=== PATIENT | female | born 1990 | race Caucasian/White ===

== ENCOUNTER 2022-05-19 19:28 | Inpatient (IN) ==
--- NOTE | 2022-05-19 20:19 | Obstetrical Progress Note ---
Date of Service May 19, 2022 Assessment & Plan (1) Two vessel umbilical cord in oh , antepartum: (2) Gestational diabetes mellitus (GDM) affecting , antepartum: Plan 32 yo at 40 4/7 wga presents for chow bulb placement VSS Chow bulb - 35cc chow bulb placed after verbal informed consent obtained following review of risks and benefits, pt tolerated well. NST reactive prior, will monitor x 1hr and d/c as long as remains reactive. Labor and chow bulb precautions reviewed Admission and Anticipated Discharge Date Admission Date: May 19, 2022 Subjective 32 yo at 40 4/7 wga presents for chow bulb for planned IOL tomorrow. +FM; denies ctx, LOF, VB PNI: 2VC A1GDM Physical Exam Genitourinary: Manual OB Exam: + cervical dilation (1.5-2), + cervical effacement 50% and + station -2 OB Exam Monitor Tracing: + external FHT monitor used, + external uterine monitor used (irritability) and + category I (125-130/mod/+accel/-decel) Results & Data ([facility]) Vital Signs (Past 12 Hours) Vital Signs Temp Pulse Resp BP 05/19/22 19:30 20 05/19/22 20:01 76 124/77 05/19/22 19:33 98.4 F 90 20 143/79 H PG Care Time/CCT Total # of Minutes Spent Total Time Spent with Patient: Total time spent is greater than 50% in coordination of care (as documented) at patient's floor/unit and/or counseling patient: Coding Level of Care Code 72000 Office/Outpt Visit, Est Diagnoses Two vessel umbilical cord in oh , antepartum O09.899 Gestational diabetes mellitus (GDM) affecting , antepartum O24.419 CPT Codes Misx Procedure Codes - 70373 Placement of cervical dilator: 52600 Placement of cervical dilator ([id number]) Misx Procedure Codes - 47188 NST: 47921 NST ([id number]) GARAGE SUPERVISOR Miscellaneous Codes Misx Procedure Codes 71654 Placement of cervical dilator 43585 NST
== END 2022-05-19 21:30 | disposition home or self-care (01) | DRG 833 ==
LOC: 4S1 19:28

== ENCOUNTER 2022-05-20 07:42 | Inpatient (IN) ==
[2022-05-20] MEDS ORDERED: LIDOCAINE 1% LOCAL 20 ML VIAL INFIL PRN (08:08)
[2022-05-20] MEDS ORDERED: OXYTOCIN 30 UNITS/500 ML BAG IV PRN ×3 (08:08→21:29)
--- NOTE | 2022-05-20 08:37 | History & Physical Report ---
Date of Service May 20, 2022 Assessment & Plan (1) Encounter for induction of labor: Plan: Patient is a 32 yo at 40+5 WGA presenting to labor and delivery for induction. Blood type: A+, GBS neg, rubella immune Chow bulb in vagina on exam- removed Plan to start oxytocin and rupture membranes later if necessary Proceed with labor and vaginal delivery Admission and Anticipated Discharge Date Admission Date: May 20, 2022 History of Present Illness Primary Care Provider: Guru Lee MD Patient is a 32 yo female currently at 40+5WGA with an YAMILEX 05/15/2022 as determined by LMP who is here for induction. Her was complicated by GDM and a 2 vessel cord. Denies timeable contractions, still sporadic and mildly painful at this point; movement present; denies fluid loss; denies bloody show, "spotting" after chow bulb placement External FHT and external uterine monitors used; category I tracing; normal FHT variability Had regular appointments with OB. Labs: 10/10/2021 Blood type: A+ Antibody screen: neg Hgb: 11.4 (today) Hct: 33.3% (today) WBC: 9.48 (today) Plt: 224 (today) Rubella: immune VDRL/RPR: neg Gonorrhea: neg Chlamydia: neg HIV: neg HbSAg: neg GBS: neg Other screens: cff-DNA: low risk CF: neg SMA: neg Allergies Allergy/AdvReac Type Severity Reaction Status Date / Time No Known Allergies Allergy Verified 05/20/22 08:06 Home Medications Medication Instructions Recorded Confirmed Type prenat.vits,abby,tcq-ikrn-eodcg 1 tab PO DAILY 06/03/21 05/20/22 History acetone (urine) test (Ketone Urine #50 ea 03/13/22 05/19/22 Rx Test strips) blood sugar diagnostic (OneTouch #150 ea 03/13/22 05/19/22 Rx Verio test strips) blood-glucose meter (OneTouch #1 ea 03/13/22 05/19/22 Rx Verio Reflect Meter) lancets 33 gauge (OneTouch Delica #150 ea 03/13/22 05/19/22 Rx Lancets) famotidine 10 mg tablet (Pepcid AC) 10 mg PO DAILY 05/20/22 05/20/22 History Patient History Medical History (Updated 05/20/22 @ 08:37 by Harper Levin DO) Gestational diabetes mellitus Diet controlled Two vessel umbilical cord Echo- Normal Surgical History H/O removal of cyst scalp H/O wisdom tooth extraction Family History Grandmother (Maternal) Colorectal cancer Father Dyslipidemia Mother Parkinson disease Denies family history of Ovarian cancer Prostate cancer Breast cancer Social History (Updated 05/20/22 @ 08:06 by Bhavani De Dios, CHRIS) Smoking Status: Never smoker Hx Alcohol Use: No Hx Substance Use: No Preferred Language: 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 Denies SOB, difficulty breathing, chest pain, palpitations, and chest pressure. Denies breast pain. Denies dysuria. Denies headache or changes in vision. Physical Exam Physical Exam: General: Alert and oriented. No acute distress CV: Regular rate and rhythm. No murmurs. Respiratory: CTA bilaterally. No rhonchi, wheezes, or crackles. No increased work of breathing. Abdomen: Gravid; Soft, nontender upon palpation Pelvic: Dilated 3 cm; Effacement 70%; Station -[address] Pichardo Lower extremities: Mild, nonpitting, bilateral LE edema. No deep calf pain. Yadi's negative bilaterally. Genitourinary: OB Exam Abdomen: + vertex, + estimated weight (7-8 lbs) and + irregular contractions Manual OB Exam: + cervical dilation 3 cm, + cervical effacement 70% and + station -2 OB Exam Monitor Tracing: + external FHT monitor used, + external uterine monitor used, + category I and + normal FHT variability Results & Data ([facility]) Vital Signs (Past 12 Hours) Vital Signs Pulse BP 05/20/22 07:56 102 H 135/89 Supervising Physician Co-Signing Physician Notes Resident Physician Supervision Note: I interviewed and examined the patient. Discussed with Dr. Levin and agree with findings and plan as documented in the note. Any exceptions or clarifications are listed here: [None] Documented By: Swati Babcock MD, FACOG Resident Activity Tracking Resident Involvement: Resident Care Provided Care Provided: OB Delivery
[2022-05-20 08:40] LABS: Hematocrit (blood only) 33.3 % (34.1-44.9); Hemoglobin 11.4 g/dl (12.0-16.0); Mean Corpuscular Hemoglobin 31.5 pg (25.0-34.0); Mean Corpuscular Hgb Conc 34.2 g/dL (32.0-36.0); Mean Platelet Volume 10.7 fL (9.4-12.3); Platelet Count 224 K/uL (130-400); RDW Coefficient of Variation 12.7 % (11.5-14.5); RDW Standard Deviation 42.4 fL (36.4-46.3); Red Blood Count 3.62 M/uL (3.93-5.22); White Blood Count 9.48 K/ul (4.8-10.8)
[2022-05-20] MEDS: LACTATED RINGER'S 1,000 ML IV PRN ×3 (09:21→16:29)
[2022-05-20] MEDS ORDERED: ePHEDrine sulfate 50 MG/ML AMP ONE (15:39)
[2022-05-20] MEDS ORDERED: fentaNYL citrate 100 MCG/2 ML VIAL ONE (15:40)
[2022-05-20] MEDS ORDERED: BUPIVACAINE 0.25% 30 ML VIAL ONE (15:40)
[2022-05-20] MEDS ORDERED: SODIUM CHLORIDE 0.9% INJ 10 ML VIAL ONE (15:40)
[2022-05-20] MEDS ORDERED: LIDOCAINE 2%/EPINEPHRINE 1:200,000 20 ML SDV ONE (15:40)
[2022-05-20] MEDS ORDERED: fentaNYL 2MCG/ML ROPIVACAINE 1.25MG/ML 100 ML BAG EPI ONE (15:40)
[2022-05-20] MEDS ORDERED: NALOXONE HCL 1 MG in SODIUM CHLORIDE 0.9% 1000ML 1,000 ML IV PRN (15:58)
[2022-05-20] MEDS ORDERED: fentaNYL 2MCG/ML ROPIVACAINE 1.25MG/ML 100 ML BAG EPI PRN (15:58)
[2022-05-20] MEDS ORDERED: ePHEDrine sulfate 50 MG/ML AMP IV PRN (15:58)
[2022-05-20] MEDS ORDERED: NALBUPHINE HCL INJ 10 MG/ML AMP IV PRN (15:58)
[2022-05-20] MEDS ORDERED: diphenhydrAMINE 50 MG/ML VIAL IV PRN (15:58)
[2022-05-20] MEDS ORDERED: NALOXONE HCL 0.4 MG/1 ML VIAL/CARP IV PRN (15:58)
--- NOTE | 2022-05-20 16:00 | Anesthesiology Consultation ---
Date of Service May 20, 2022 Assessment & Plan (1) Encounter for pre-operative examination: Chart Review Chart Review: Patient NOT seen in Pre Admission Testing and Acceptable Risk for Labor Epidural Consults Requested none History Height/Weight Height: 5 ft 2 in Weight: 92.986 kg Allergies Allergy/AdvReac Type Severity Reaction Status Date / Time No Known Allergies Allergy Verified 05/20/22 08:06 Medications Home Medications Medication Instructions Recorded Confirmed Last Taken prenat.vits,abby,jzv-uolh-buksf 1 tab PO DAILY 06/03/21 05/20/22 05/19/22 08:00 acetone (urine) test (Ketone Urine #50 ea 03/13/22 05/19/22 Unknown Test strips) blood sugar diagnostic (OneTouch #150 ea 03/13/22 05/19/22 Unknown Verio test strips) blood-glucose meter (OneTouch #1 ea 03/13/22 05/19/22 Unknown Verio Reflect Meter) lancets 33 gauge (OneTouch Delica #150 ea 03/13/22 05/19/22 Unknown Lancets) famotidine 10 mg tablet (Pepcid AC) 10 mg PO DAILY 05/20/22 05/20/22 05/19/22 08:00 Active Medications Generic Name Dose Route Start Last Admin Trade Name Freq PRN Reason Stop Dose Admin Oxytocin 30 units in 500 mls @ 15 mls/hr 05/20/22 08:08 05/20/22 14:45 Pitocin IV 05/22/22 08:07 0.9 units/hr .Q24H PRN 15 mls/hr Labor Induction/Augmentation Titration Protocol 0.9 UNITS/HR Lactated Ringer's 1,000 mls @ 125 mls/hr 05/20/22 08:08 05/20/22 15:31 Lr IV 05/22/22 08:07 999 mls/hr .Q8H PRN Administration L&D Protocol Protocol Past Medical History Medical History Gestational diabetes mellitus Diet controlled Two vessel umbilical cord Echo- Normal Exercise / Class Metabolic Activity II 4-5 Yardwork/Stairs/Walk up hill Past Family History Family History Grandmother (Maternal) Colorectal cancer Father Dyslipidemia Mother Parkinson disease Denies family history of Ovarian cancer Prostate cancer Breast cancer Past Surgical History Surgical History H/O removal of cyst scalp H/O wisdom tooth extraction Past Anesthesia History No Hx of Anesthesia Complications and No Family Hx of Anesthesia Complications History of PONV No Hx of PONV and No Hx of Motion Sickness Social History Smoking Status: Never smoker Hx Alcohol Use: No Hx Substance Use: No substance use type: does not use Physical Exam Vital Signs Last Vital Signs Temp 37.0 C 05/20/22 14:53 Pulse 69 05/20/22 16:16 Resp 20 05/20/22 14:53 BP 175/99 H 05/20/22 15:24 Pulse Ox 100 05/20/22 16:16 Testing Laboratory Results 05/20/22 08:18 Blood Type A Positive 05/20/22 08:18 Antibody Screen NEGATIVE 05/20/22 08:18 05/20/22 08:57 POC Glucose 122 H
[2022-05-20] MEDS ORDERED: ACETAMINOPHEN 325 MG TAB PO PRN (21:29)
[2022-05-20] MEDS ORDERED: bisacodyL 10 MG SUPP PR PRN (21:29)
[2022-05-20] MEDS ORDERED: BENZOCAINE 20% AER SPR 82.5 GM CAN EXT PRN (21:29)
[2022-05-20] MEDS ORDERED: DIPHTHERIA/TETANUS/PERTUSSIS 0.5 ML SYR/VIAL IM ONE (21:29)
[2022-05-20] MEDS ORDERED: HYDROCORTISONE ACETATE 25 MG SUPP PR PRN (21:29)
[2022-05-20] MEDS ORDERED: oxyCODONE/ACETAMINOPHEN 5mg/325mg TAB PO PRN (21:29)
--- NOTE | 2022-05-20 21:33 | Delivery Summary ---
Vaginal Delivery Summary Date of Service May 20, 2022 Vaginal Delivery Summary and 2nd Degree LAC Patient is a 32-year-old 1 para 0 female EDC of 05/15/2022 presents for induction of labor because of postterm . A cervical balloon was successfully placed the night prior to induction. Pitocin augmentation of her contractions was begun and she requested epidural analgesia after her membranes were ruptured for clear fluid. She progressed to full dilation and pushed effectively over intact perineum for delivery of a viable female . After the head was delivered the rest of the delivered easily and was placed on mother's abdomen for further attention and drying. After 1 minute, the cord was clamped and cut. The infant was vigorous after stimulation. After cord blood was obtained the placenta was expressed intact with a three-vessel cord. Prenatally it was noted to be a two-vessel cord but on inspection, there was actually 2 vessels with 1 being very small. bleeding was controlled with dilute Pitocin and fundal massage. A second-degree perineal laceration was repaired with 3-0 chromic in the usual fashion. Estimated blood loss was 200 cc. Mother and were doing well in the immediate period. [facility] [place] Vaginal Delivery Charge Delivery Type Details: and 2nd Degree LAC
--- NOTE | 2022-05-20 21:53 | Anesthesia Procedure Note ---
Date of Service May 20, 2022 Anesthesia Post Epidural Note Vital Signs Vital Signs: Temp Pulse Resp BP Pulse Ox 37.8 C H 96 H 20 122/62 97 05/20/22 20:50 05/20/22 21:37 05/20/22 20:30 05/20/22 21:37 05/20/22 21:21 Pain Intensity Bilateral Abdomen: Pain Intensity: 4 Notes Mental Status: alert / awake / arousable and participated in evaluation Patient Amnestic to Procedure: No Nausea / Vomiting: adequately controlled Pain: adequately controlled Airway Patency, RR, SpO2: stable & adequate BP & HR: stable & adequate Hydration State: stable & adequate Neuraxial Anesthesia: was administered and sensory block is resolving Anesthetic Complications: no major complications apparent and Pt Satisfied with anesthetic care Epidural: Removed without complications and With tip intact
[2022-05-21] MEDS: IBUPROFEN 600 MG TAB PO PRN ×5 (04:23→21:52)
[2022-05-21 06:30] LABS: Hematocrit (blood only) 29.8 % (34.1-44.9); Hemoglobin 10.4 g/dl (12.0-16.0); Mean Corpuscular Hemoglobin 31.9 pg (25.0-34.0); Mean Corpuscular Hgb Conc 34.9 g/dL (32.0-36.0); Mean Corpuscular Volume 91.4 fL (80.0-100.0); Mean Platelet Volume 10.7 fL (9.4-12.3); Platelet Count 183 K/uL (130-400); RDW Coefficient of Variation 12.5 % (11.5-14.5); RDW Standard Deviation 41.8 fL (36.4-46.3); Red Blood Count 3.26 M/uL (3.93-5.22); White Blood Count 12.14 K/ul (4.8-10.8)
--- NOTE | 2022-05-21 06:34 | Obstetrical Progress Note ---
Date of Service <Harper CarrolljacquelineandreaDO - Last Filed: 05/21/22 07:00> May 21, 2022 Assessment & Plan <Harper Levin - Last Filed: 05/21/22 07:00> (1) care following vaginal delivery: Patient is PPD 1 s/p and doing well. - Eating well, voiding well, ambulating well - Vitals reviewed and within normal limits - Pain well controlled with analgesics - OOB, ambulation, diet progression as tolerated - Blood type: A+, GBS neg, rubella immune - Plan to discharge tomorrow - After discharge, 6 week follow up with Dr. Pichardo <Swati Babcock MD, FACOG - Last Filed: 05/21/22 07:29> (1) care following vaginal delivery: Subjective <Harper CarrolljacquelineandreaDO - Last Filed: 05/21/22 07:00> Patient is a 32 yo female who is now PPD #1 following spontaneous vaginal delivery at 40+5 weeks. Reports feeling well this morning. She endorses abdominal cramping and 1/10 pain well managed on analgesics. Voiding without i ssue. Tolerating regular meals overnight and able to ambulate some. She has not passed gas and no bowel movements. Persistent lochia with some improvement this morning. Currently breast feeding. Review of Systems Denies fever, chills, sweats. Denies SOB, difficulty breathing, chest pain, palpitations, and chest pressure. Denies breast pain. Denies dysuria. Denies headache or changes in vision. Physical Exam <Harper CarrollDO latrice - Last Filed: 05/21/22 07:00> General: Alert and oriented. No acute distress. CV: Regular rate and rhythm. No murmurs. Respiratory: CTA bilaterally. No rhonchi, wheezes, or crackles. No increased work of breathing. Abdomen: Positive bowel sounds. Soft, nontender, non distended. Uterus: Fundus firm and palpable 3 cm below the umbilicus. Lower extremities: Mild, nonpitting, bilateral LE edema. No deep calf pain. Yadi's negative bilaterally. Results & Data ([facility]) <Harper DelgadoCharo Levin DO - Last Filed: 05/21/22 07:00> Vital Signs (Past 12 Hours) Vital Signs Temp Pulse Pulse Resp BP BP Pulse Ox 05/21/22 05:00 36.7 C 77 16 130/84 97 05/21/22 00:30 37.1 C 89 18 131/81 96 05/20/22 21:38 99 H 18 120/58 L 05/20/22 22:08 102 H 20 05/20/22 21:53 102 H 20 132/68 05/20/22 21:23 99 H 20 120/58 L 05/20/22 23:52 85 123/63 05/20/22 23:37 89 122/62 05/20/22 23:22 93 H 124/70 05/20/22 23:08 95 H 126/76 05/20/22 22:52 91 H 124/65 05/20/22 22:37 93 H 118/59 L 05/20/22 22:22 102 H 132/68 05/20/22 22:08 99 H 120/58 L 05/20/22 21:52 101 H 131/66 05/20/22 21:37 96 H 122/62 05/20/22 21:23 95 H 126/61 05/20/22 21:21 95 H 97 05/20/22 21:16 94 H 97 05/20/22 21:11 93 H 96 05/20/22 21:07 93 H 91 05/20/22 21:06 97 H 98 05/20/22 21:00 113 H 90 05/20/22 21:01 110 H 99 05/20/22 20:50 37.8 C H 05/20/22 20:56 103 H 98 05/20/22 20:54 100 H 119/66 05/20/22 20:51 91 H 99 05/20/22 20:46 96 H 99 05/20/22 20:41 83 98 05/20/22 20:30 20 05/20/22 20:30 20 05/20/22 20:39 93 H 133/74 05/20/22 20:36 101 H 98 05/20/22 20:31 95 H 99 05/20/22 20:26 100 H 100 05/20/22 20:24 95 H 128/70 05/20/22 20:21 102 H 100 05/20/22 20:16 85 99 05/20/22 20:11 79 99 05/20/22 20:08 82 125/74 05/20/22 20:06 81 99 05/20/22 20:01 79 99 05/20/22 20:00 20 05/20/22 20:00 20 05/20/22 19:55 79 98 05/20/22 19:54 85 126/75 05/20/22 19:51 77 99 05/20/22 19:04 20 05/20/22 19:04 37.1 C 20 05/20/22 19:46 81 99 05/20/22 19:41 83 99 05/20/22 19:39 77 127/75 05/20/22 19:36 79 99 05/20/22 19:30 18 05/20/22 19:30 18 05/20/22 19:31 80 99 05/20/22 19:26 82 100 05/20/22 19:24 82 130/75 05/20/22 19:21 79 99 05/20/22 19:16 76 99 05/20/22 19:11 76 99 05/20/22 19:09 74 115/68 05/20/22 19:06 81 99 05/20/22 19:01 78 99 05/20/22 18:56 86 100 05/20/22 18:55 78 118/70 05/20/22 18:51 76 100 05/20/22 18:46 72 100 05/20/22 18:41 76 100 05/20/22 18:39 81 127/71 05/20/22 18:36 74 99 O2 Del Method 05/21/22 05:00 Room Air 05/21/22 00:30 Room Air 05/20/22 21:38 05/20/22 22:08 05/20/22 21:53 05/20/22 21:23 05/20/22 23:52 05/20/22 23:37 05/20/22 23:22 05/20/22 23:08 05/20/22 22:52 05/20/22 22:37 05/20/22 22:22 05/20/22 22:08 05/20/22 21:52 05/20/22 21:37 05/20/22 21:23 05/20/22 21:21 05/20/22 21:16 05/20/22 21:11 05/20/22 21:07 05/20/22 21:06 05/20/22 21:00 05/20/22 21:01 05/20/22 20:50 05/20/22 20:56 05/20/22 20:54 05/20/22 20:51 05/20/22 20:46 05/20/22 20:41 05/20/22 20:30 05/20/22 20:30 05/20/22 20:39 05/20/22 20:36 05/20/22 20:31 05/20/22 20:26 05/20/22 20:24 05/20/22 20:21 05/20/22 20:16 05/20/22 20:11 05/20/22 20:08 05/20/22 20:06 05/20/22 20:01 05/20/22 20:00 05/20/22 20:00 05/20/22 19:55 05/20/22 19:54 05/20/22 19:51 05/20/22 19:04 05/20/22 19:04 05/20/22 19:46 05/20/22 19:41 05/20/22 19:39 05/20/22 19:36 05/20/22 19:30 05/20/22 19:30 05/20/22 19:31 05/20/22 19:26 05/20/22 19:24 05/20/22 19:21 05/20/22 19:16 05/20/22 19:11 05/20/22 19:09 05/20/22 19:06 05/20/22 19:01 05/20/22 18:56 05/20/22 18:55 05/20/22 18:51 05/20/22 18:46 05/20/22 18:41 05/20/22 18:39 05/20/22 18:36 <Swati Babcock MD, FACOG - Last Filed: 05/21/22 07:29> Co-Signing Physician Notes Resident Physician Supervision Note: I interviewed and examined the patient. Discussed with Dr. Levin and agree with findings and plan as documented in the note. Any exceptions or clarifications are listed here: [None] Documented By: Swati Babcock MD, FACOG Resident Activity Tracking <Harper Levin, DO - Last Filed: 05/21/22 07:00> Resident Involvement: Resident Care Provided Care Provided: OB Delivery
[2022-05-21] MEDS: PRENATAL VITAMIN 1 TAB PO SCH (08:55)
[2022-05-21] MEDS: DOCUSATE SODIUM 100 MG CAP PO SCH ×2 (08:55→20:35)
[2022-05-21] MEDS ORDERED: bisacodyL 5 MG TABEC PO SCH (20:00)
--- NOTE | 2022-05-22 05:42 | Obstetrical Progress Note ---
Date of Service <Harper Carrolllatrice, DO - Last Filed: 05/22/22 06:46> May 22, 2022 Assessment & Plan <Harper Carrolljacquelineandrea, DO - Last Filed: 05/22/22 06:46> (1) care following vaginal delivery: Patient is PPD 2 s/p and doing well. - Eating well, voiding well, ambulating well - Vitals reviewed and within normal limits - Pain well controlled with analgesics - OOB, ambulation, diet progression as tolerated - Blood type: A+, GBS neg, rubella immune - Plan to discharge today - Plan for close follow up in 1 week in office to discuss mental health concerns - After discharge, 6 week PP follow up with Dr. Pichardo <Laya Jarrett, DO - Last Filed: 05/22/22 07:51> (1) care following vaginal delivery: Subjective <Harper Carrolljacquelineandrea, DO - Last Filed: 05/22/22 06:46> Patient is a 32 yo female who is now PPD #2 following spontaneous vaginal delivery at 40+5 weeks. Reports feeling physically well this morning; however, s he does self describe herself as "emotional." She was awake a lot of the night d/t cluster feeding. She endorses abdominal cramping and 4/10 pain well managed on analgesics. Voiding without issue. Tolerating regular meals overnight and able to ambulate some. She has passed gas and no bowel movements. Persistent lochia with some improvement this morning. Currently breast feeding. Review of Systems Denies fever, chills, sweats. Denies SOB, difficulty breathing, chest pain, palpitations, and chest pressure. Denies breast pain. Denies dysuria. Denies headache or changes in vision. Physical Exam <Harper Carrolllatrice, DO - Last Filed: 05/22/22 06:46> General: Alert and oriented. No acute distress. CV: Regular rate and rhythm. No murmurs. Respiratory: CTA bilaterally. No rhonchi, wheezes, or crackles. No increased work of breathing. Abdomen: Positive bowel sounds. Soft, nontender, non distended. Uterus: Fundus firm and palpable 3 cm below the umbilicus. Lower extremities: No LE edema. No deep calf pain. Yadi's negative bilaterally. Results & Data ([facility]) <Harper Levin, - Last Filed: 05/22/22 06:46> Vital Signs (Past 12 Hours) Vital Signs Temp Pulse Resp BP Pulse Ox O2 Del Method 05/21/22 23:09 36.6 C 82 18 129/84 97 Room Air 05/21/22 19:18 36.6 C 77 16 134/86 95 Room Air <Laya Jarrett, - Last Filed: 05/22/22 07:51> Co-Signing Physician Notes Resident Physician Supervision Note: I interviewed and examined the patient. Discussed with Dr. Levin and agree with findings and plan as documented in the note. Any exceptions or clarifications are listed here: PPD#2 doing ok. Having some anxiety and feelings of being overwhelmed. No thoughts of self harm or harm to baby or others. ALBERTINA's family is local, she feels lots of support from them. She is looking forward to being at home with her own bed and shower. I offered that she can make a 1 week follow up appointment in OB office to check in, as well as the upcoming pediatrics appointment for baby. She felt that this was a good plan. Reviewed DC instructions. Documented By: Laya Jarrett DO Resident Activity Tracking <Harper Levin DO - Last Filed: 05/22/22 06:46> Resident Involvement: Resident Care Provided Care Provided: OB Delivery
[2022-05-22] MEDS: IBUPROFEN 600 MG TAB PO PRN (06:24)
[2022-05-22] MEDS: PRENATAL VITAMIN 1 TAB PO SCH (08:34)
[2022-05-22] MEDS: DOCUSATE SODIUM 100 MG CAP PO SCH (08:34)
[2022-05-22 09:48] LABS: Hemoglobin 10.2 g/dl (12.0-16.0)
== END 2022-05-22 15:38 | disposition home or self-care (01) | DRG 807 ==
LOC: 4S1 07:42 → 4E2 05-21 00:37